=== PATIENT | male | born 1995 | race African-American/Black ===

== ENCOUNTER 2016-11-13 15:49 | Emergency (ER) | payer MEDICAID ==
[2016-11-13 15:55] VITALS: TEMP 98.2; BMI 21.8
[2016-11-13 16:31] LABS: LEUKOCYTES/URINE NEG (NEGATIVE); NITRITE/URINE NEG (NEGATIVE); RBC/URINE 0-2 (0-2); URINE OCCULT BLOOD NEG (NEG/TRACE); WBC/URINE 0-2 (0-2)
--- NOTE | 2016-11-13 16:59 | DIRPT ---
CLINICAL DATA: Abdominal pain EXAM: DG ABDOMEN ACUTE W/ 1V CHEST COMPARISON: None. FINDINGS: Lungs are clear. No pleural effusion or pneumothorax. The heart is normal in size. Nonobstructive bowel gas pattern. Normal colonic stool burden. No evidence of free air under the diaphragm on the upright view. Visualized osseous structures are within normal limits. IMPRESSION: No evidence of acute cardiopulmonary disease. No evidence of small bowel obstruction or free air. Electronically Signed By: Salvador Marcano M.D. On: 11/13/2016 16:56
--- NOTE | 2016-11-13 17:23 | EDPRACDOC ---
- General Information Chief Complaint: Abdominal Pain Stated Complaint: ABD PAIN Time Seen by Provider: 11/13/16 16:01 Information Source: Patient Mode Of Arrival: Car Home Medications: Home Medications BuPROPion (Daily formulation) [Wellbutrin Xl] 300 mg PO DAILY 07/13/13 Risperidone [Risperdal] 1 mg PO QHS 07/13/13 Divalproex Sodium [Divalproex Sodium ER] 500 mg PO QHS 03/20/14 Allergies/Adverse Reactions: Allergies Allergy/AdvReac Type Severity Reaction Status Date / Time No Known Allergies Allergy Verified 11/13/16 15:52 - History of Present Illness Onset: 1 hour HPI: PT PRESENTS WITH LOWER ABDOMINAL PAIN. STATES IT FELT LIKE SOMETHING WAS PULLING. DENIES NAUSEA, VOMITING, CHILLS OR FEVER. PT REFUSES TO HAVE BLOOD WORK DONE Pain Location: Reports: Suprapubic Pain Context: Reports: Spontaneous Pain Severity: Moderate Pain Quality: Reports: Cramping Pain Radiation: Reports: No Radiation Adult Abdominal History: Denies: Abdominal Surgery, Urolithiasis, Bowel Obstruction, Similar Pain (dx) Modifying Factors: worse with: Nothing, Antacids, Food, Position, Lying Still, Exertion, Movement, Other Associated Signs & Symptoms: Denies: Nausea, Frequency, Hematuria, Vomiting, Hematemesis, Anorexia, Diarrhea, Melena, Dysuria, Fever, Urgency, Other, Chills Oral Intake: Normal Urinary Output: Normal ED Past Medical History - History Reviewed Yes Nurses notes reviewed and agree except as marked - Patient Medical History Psychological History: Reports: Anxiety. Denies: Depression - Social Medical History Smoking Status: Never smoker EDM Review of Systems - Review of Systems ROS Negative Except as Marked: Yes All systems reviewed and were negative except as marked - Physical Exam Constitutional: Alert Oriented to: Time, Person, Place Last recorded Vital Signs: Last Vital Signs Temp 98.2 F 11/13/16 15:50 Pulse 87 11/13/16 15:56 Resp 20 11/13/16 15:50 BP 119/67 11/13/16 15:56 Pulse Ox 98 11/13/16 15:56 Oxygen Pulse Oxygen Saturation 98 O2 Device Room Air Oxygen Flow Rate Fraction of Inspired Oxygen ( FIO2) - HEENT Head: Normal ( normocephalic) Eye Exam: Normal (PERRL, EOMI, Sclera white) Oropharynx: Normal (Pharynx:Moist without exudate,Gums-no swelling) Nose: No Symptoms Reported (septum midline) Neck: Normal (FROM, trachea at midline) - Respiratory/Cardiovascular Respiratory: Normal - CTA (BBS clear to auscultation without adventitious sounds ) Cardiovascular: Normal (RRR without murmur, gallop or rub) - GI Auscultation: Normal (NABS) Palpation: Normal (Soft,No rebound or guarding, non distended) Tenderness: Non tender Boswell's Sign: Negative Rectal Exam: Deferred - Musculoskeletal Back: Normal (Non-Tender) Extremities: Normal (Normal tone, Pulses 2+ No cyanosis or edema, FROM) - Integumentary Skin: Normal, Warm, Dry Lymphatics: Normal (no adenopathy) - Neurologic Memory Impaired: Normal Motor Function: Normal (Normal tone, Pulses 2+ No cyanosis or edema, FROM) Cranial Nerve: Normal (CN II-X11 intact sensation, strength 5/5) Cerebellar: Normal Mood Description: Normal Perception: Normal - Differential Diagnosis Constipation, UTI - Results Urine Color Yellow 11/13/16 16:15 Urine Clarity Clear 11/13/16 16:15 Urine pH 5.0 (5.0-8.0) 11/13/16 16:15 Ur Specific [place] 1.020 (1.003-1.035) 11/13/16 16:15 Urine Protein Neg (NEG/TRACE) 11/13/16 16:15 Urine Glucose (UA) Neg (NEGATIVE) 11/13/16 16:15 Urine Ketones 1+ (NEGATIVE) H 11/13/16 16:15 Urine Occult Blood Neg (NEG/TRACE) 11/13/16 16:15 Urine Nitrite Neg (NEGATIVE) 11/13/16 16:15 Urine Bilirubin Neg (NEGATIVE) 11/13/16 16:15 Urine Urobilinogen <2.0 MG/DL (0-1) 11/13/16 16:15 Ur Leukocyte Esterase Neg (NEGATIVE) 11/13/16 16:15 Urine RBC 0-2 (0-2) 11/13/16 16:15 Urine WBC 0-2 (0-2) 11/13/16 16:15 Urine Mucus Mod (NEG/OCC) H 11/13/16 16:15 Lab Results 11/13/16 16:15 Urine Color Yellow Urine Clarity Clear Urine pH 5.0 Ur Specific [place] 1.020 Urine Protein Neg Urine Glucose (UA) Neg Urine Ketones 1+ H Urine Occult Blood Neg Urine Nitrite Neg Urine Bilirubin Neg Urine Urobilinogen <2.0 Ur Leukocyte Esterase Neg Urine RBC 0-2 Urine WBC 0-2 Urine Mucus Mod H Decision Time to Discharge: 17:37 - Departure Disposition: Home Condition: Stable Final Diagnosis: Abdominal pain Instructions: Acute Abdominal Pain (ED) Education/Counseling Given To: Patient Education/Counseling Given Regarding: Diagnosis, Treatment, Prognosis, Follow Up Referrals: Joel Soliz II, MD [Staff Physician] - One Week Prescriptions: No Action Risperidone [Risperdal] 1 mg PO QHS BuPROPion (Daily formulation) [Wellbutrin Xl] 300 mg PO DAILY Divalproex Sodium [Divalproex Sodium ER] 500 mg PO QHS Additional Instructions: FOLLOW UP WITH PCP NEXT WEEK.
[2016-11-13 17:58] VITALS: BP 123/68; PULSE 85
== END 2016-11-13 17:54 | disposition home or self-care (01) ==
LOC: ED 15:49
DX: R10.9 Unspecified abdominal pain (principal)
CPT/HCPCS: 74022; 81001; 99283